=== PATIENT | male | born 1990 | race Caucasian/White ===

== ENCOUNTER 2021-04-24 19:17 | Emergency (ER) | payer SELFPAY ==
--- NOTE | 2021-04-24 21:25 | ER ---
Nurse's Notes [facility] Name: Robert Gorman Age: 31 yrs Sex: Male : 1990 Arrival Date: 04/24/2021 Time: 19:21 Bed Waiting Private MD: Diagnosis: ED Course: 04/24 19:21 Patient arrived in ED. wm 21:24 Patient's name was called from ER lobby. No response. Unable to locate patient. Will bb disposition as left without being seen by a provider. Administered Medications: No medications were administered Outcome: 21:25 Patient left the ED. bb Signatures: Geno Sher RN RN bb Kristi Rosas
== END 2021-04-24 21:25 | disposition left against medical advice (07) ==
LOC: ER 19:17
DX: Z02.9 Encounter for administrative examinations, unspecified (principal)